=== PATIENT | female | born 1995 | race Asian ===

== ENCOUNTER 2016-08-13 13:35 | Emergency (ER) | payer MEDICAID, OTHER ==
[~2016-08-13] VITALS: Ht 165.1 cm; Wt 72.6 kg
[2016-08-13] MEDS ORDERED: AUGMENTIN 875 MG TAB (AMOXICILLIN/CLAVULANATE) PO SCH (14:00)
[2016-08-13] MEDS ORDERED: predniSONE 20 MG TAB PO ONE (14:00)
[2016-08-13] MEDS ORDERED: AMOX500C2 PO (14:04)
--- NOTE | 2016-08-13 14:04 | ED EENT ---
History of Present Illness General Chief Complaint: Oral/Throat Problems Stated Complaint: SORE THROAT/FEVER Nursing Triage Note: c/o sore throat and fever x 1 day Source: patient Exam Limitations: no limitations History of Present Illness Time seen by provider: 14:00 Initial Comments to ER with a sore throat and fever times one day. No cough. She is able to eat and drink. Timing/Duration: abrupt Severity: moderate Location: throat Associated Symptoms: No cough, fever, sore throat Allergies and Home Medications Allergies Coded Allergies: No Known Drug Allergies (Unverified , 08/13/16) Home Medications No Active Prescriptions or Reported Meds Review of Systems Constitutional: see HPI, No chills Eyes: No Symptoms Reported Ears: No Symptoms Reported Nose: no symptoms reported Mouth: no symptoms reported Throat: see HPI (nothing comes up), pain Respiratory: no symptoms reported Cardiovascular: no symptoms reported Musculoskeletal: no symptoms reported Past Gzwanrh-Yzpyvg-Tilibi Hx Patient Social History Alcohol Use: Denies Use Recreational Drug Use: No Smoking Status: Never a Smoker Recent Foreign Travel: No Contact w/Someone Who Travel: No Recent Infectious Disease Expo: No Recent Hopitalizations: No Surgeries HX Surgeries: No Respiratory Hx Respiratory Disorders: No Cardiovascular Hx Cardiac Disorders: No Neurological Hx Neurological Disorders: No Reproductive System Hx Reproductive Disorders: No Sexually Transmitted Disease: No Genitourinary Hx Genitourinary Disorders: No Gastrointestinal Hx Gastrointestinal Disorders: No Musculoskeletal Hx Musculoskeletal Disorders: No Endocrine Hx Endocrine Disorders: No HEENT HX ENT Disorders: No Cancer Hx Cancer: No Psychosocial Hx Psychiatric Problems: No Integumentary HX Skin/Integumentary Disorder: No Blood Transfusions Hx Blood Disorders: No Physical Exam Vital Signs Vital Sign - Last 12Hours 08/13/16 13:52 Temp 101.2 Pulse 124 Resp 18 B/P (MAP) 123/78 Pulse Ox 100 General Appearance: WD/WN, no apparent distress Eyes: bilateral eye EOMI, bilateral eye PERRL, bilateral eye normal inspection Ears: bilateral ear TM normal, bilateral ear auricle normal, bilateral ear canal normal Mouth/Throat: other (pharyngeal erythema ) Neck: non-tender, full range of motion Cardiovascular: no murmur, tachycardia Respiratory: normal breath sounds, no respiratory distress, no accessory muscle use Gastrointestinal: normal bowel sounds, non tender, soft Neurologic/Psychiatric: alert, normal mood/affect Progress/Results/Core Measures Results/Orders My Orders Orders - MAYER,PETER J KENNEL HAND Amoxicillin/Clavulanate Tablet (Augmenti (08/13/16 14:00) Prednisone Tablet (Deltasone Tablet) (08/13/16 14:00) Vital Signs/I&O Vital Sign - Last 12Hours 08/13/16 13:52 Temp 101.2 Pulse 124 Resp 18 B/P (MAP) 123/78 Pulse Ox 100 Blood Pressure Mean: 93 Departure Impression Impression: Primary Impression: Pharyngitis Disposition: HOME, SELF-CARE Condition: Stable Departure-Patient Inst. Decision time for Depature: 14:02 Referrals: NO,LOCAL PHYSICIAN (PCP/Family) Primary Care Physician Patient Instructions: Sore Throat in Adults Add. Discharge Instructions: 1. Return to ER for any concerns 2. Tylenol and Motrin for pain All discharge instructions reviewed with patient and/or family. Voiced understanding. Scripts Amoxicillin (Amoxicillin) 500 Mg Capsule 500 MG PO TID for 7 Days, CAP Prov: SOPHIA MAYER APRN 08/13/16 SOPHIA MAYER APRN Aug 13, 2016 14:04
[2016-08-13 14:09] VITALS: BP 123/78
[2016-08-13] MEDS ORDERED: IBUPROFEN 800 MG (MOTRIN) TAB PO ONE (14:15)
== END 2016-08-13 14:09 | disposition home or self-care (01) ==
LOC: ER 13:38
DX: J02.9 Acute pharyngitis, unspecified (principal); R50.9 Fever, unspecified
CPT/HCPCS: 99282